=== PATIENT | female | born 1965 | race African-American/Black ===

== ENCOUNTER 2016-12-10 19:35 | Emergency (ER) | payer OTHER ==
[~2016-12-10] VITALS: Ht 167.6 cm; Wt 55.0 kg
[2016-12-10] MEDS ORDERED: MOME17N NASAL (20:06)
[2016-12-10] MEDS ORDERED: SERT50TA12 PO (20:06)
[2016-12-10] MEDS ORDERED: LISI-661 PO (20:06)
[2016-12-10] MEDS ORDERED: NAPR375T4 PO (20:06)
[2016-12-10] MEDS ORDERED: ATOR20TA86 PO (20:06)
[2016-12-10 20:36] VITALS: BP 122/86
[2016-12-10 20:59] LABS: APPEARANCE,URINE CLOUDY (CLEAR); GLUCOSE, URINE (UA) NEGATIVE (NEGATIVE); KETONES,URINE TRACE mg/dL (NEGATIVE); LEUKOCYTE ESTERASE ,URINE MODERATE (NEGATIVE); OCCULT BLOOD,URINE NEGATIVE (NEGATIVE); PROTEIN,URINE POS 1+ (NEGATIVE)
[2016-12-10 21:21] LABS: RBC,URINE None Seen /HPF (0-2); SQUAMOUS EPITHELIAL CELL,UR Rare /LPF (None Seen)
[2016-12-10] MEDS ORDERED: KETOROLAC TROMETHAMINE 60 MG/2 ML VIAL IM ONE (21:30)
[2016-12-10] MEDS ORDERED: METHOCARBAMOL 500 MG TABLET PO ONE (21:30)
== END 2016-12-10 22:41 | disposition home or self-care (01) ==
LOC: EMS 19:37
DX: S39.012A Strain of muscle, fascia and tendon of lower back, initial encounter (principal); N39.0 Urinary tract infection, site not specified; I10 Essential (primary) hypertension; E78.00 Pure hypercholesterolemia, unspecified; Z88.8 Allergy status to other drugs, medicaments and biological substances; X58.XXXA Exposure to other specified factors, initial encounter; Y93.89 Activity, other specified; Y92.89 Other specified places as the place of occurrence of the external cause; Y99.8 Other external cause status
CPT/HCPCS: 80307; 81001; 87086; 96372; 99284; J1885